=== PATIENT | female | born 1975 | race Caucasian/White ===

== ENCOUNTER 2016-12-31 18:38 | Emergency (ER) | payer MEDICAID ==
[~2016-12-31] VITALS: Ht 157.5 cm; Wt 84.5 kg
[~2016-12-31 18:38] MED LIST: IBUP-1542 PO; IRON; PARO20TA58 PO; TRAM50TA2 PO
[2016-12-31 18:51] VITALS: Ht 157.5 cm; Wt 84.5 kg
[2016-12-31 20:59] LABS: ADD SCAN DIFF NO
[2016-12-31 21:00] LABS: BASOPHIL # 0.1 10^3/ul (0.0-0.1); BASOPHILS % 0.6 % (0.0-2.0); EOSINOPHILS # 0.1 10^3/ul (0.0-0.5); EOSINOPHILS % 1.5 % (0.0-7.0); HEMATOCRIT 32.3 % (37.0-47.0); LYMPHOCYTES # 2.7 10^3/ul (0.8-2.9); LYMPHOCYTES % 29.3 % (15.0-51.0); MEAN CORPUSCULAR HEMOGLOBIN 25.6 pg (29.0-33.0); MEAN CORPUSCULAR VOLUME 82.8 fl (82.0-101.0); MEAN PLATELET VOLUME 9.3 fl (7.4-10.4); MONOCYTE # 0.6 10^3/ul (0.3-0.9); MONOCYTES % 6.7 % (0.0-11.0); NEUTROPHIL # 5.6 10^3/ul (1.6-7.5); NEUTROPHILS % 61.6 % (39.0-77.0); PLATELET COUNT 422 10^3/UL (140-415); RED CELL DISTRIBUTION WIDTH 19.7 % (11.5-14.5); WHITE BLOOD COUNT 9.1 10^3/ul (4.8-10.8)
[2016-12-31 21:06] LABS: ADD UMIC YES; URINE BILIRUBIN (Dip) NEGATIVE (NEGATIVE); URINE BLOOD (Dip) 3+ (NEGATIVE); URINE COLOR DK. RED (YELLOW); URINE GLUCOSE (Dip) NEGATIVE (NEGATIVE); URINE KETONES (Dip) TRACE (NEGATIVE); URINE LEUKOCYTE ESTERASE (Dip) NEGATIVE (NEGATIVE); URINE NITRITE (Dip) NEGATIVE (NEGATIVE); URINE TOTAL PROTEIN (Dip) 2+ (NEGATIVE); URINE UROBILINOGEN (Dip) 0.2 E.U./dL (0.1-1.0)
--- NOTE | 2016-12-31 21:19 | RADRPT ---
PROCEDURE: US Pelvis. CLINICAL INDICATION: Abnormal vaginal bleeding. Metrorrhagia. TECHNIQUE: The pelvis was evaluated with transabdominal sonography in the axial and sagittal plane s. COMPARISON: No prior study is available for comparison. FINDINGS: The uterus is enlarged measuring 15.3 x 7.7 x 11.1 cm. There are multiple fibroids in the uterus wi th a fundal fibroid measuring 7.1 x 7.5 x 7.1 cm and a lower uterine segment fibroid measuring 6.7 x 6.5 x 7.2 cm. The endometrium is normal measuring 10.6 mm. The ovaries are not visualized. There is no other pelvic mass or free fluid. IMPRESSION: 1. Enlarged fibroid uterus. 2. Normal endometrium. 3. Ovaries not visualized. 4. Otherwise normal pelvic ultrasound. RPTAT: QQ .Tray Pérez MD, MD Date Time Electronically viewed and signed by .Tray Pérez MD, on 12/31/2016 21:19 .R/
[2016-12-31 21:21] LABS: ALBUMIN 3.8 g/dl (3.3-4.9)
[2016-12-31 21:22] LABS: POTASSIUM 3.2 mmol/L (3.5-5.1)
[2016-12-31 21:23] LABS: BACTERIA,URINE MODERATE; MUCUS,URINE FEW; SQUAMOUS EPITHELIAL CELL,UR FEW; URINE RBCS >200 /HPF (0)
[2016-12-31 21:24] LABS: CREATININE 0.64 mg/dl (0.44-1.00); TOTAL PROTEIN 7.6 g/dl (6.1-8.1)
[2016-12-31 21:25] LABS: CALCIUM 8.9 mg/dl (8.4-10.2)
[2016-12-31] MEDS ORDERED: TYL500 PO (21:50)
--- NOTE | 2016-12-31 22:00 | ERD ---
ER Documentation Chief Complaint Date/Time DATE: 12/31/16 TIME: 21:56 Chief Complaint heavy bleeding for 5 days changing pad every 30 mins HPI This is 42 y/o female that presents to the ER with vaginal bleeding for the last 5 days. Patient states that her period started on Tuesday. She changes her pad about every hour. Patient has a past medical history of fibroids. She denies any pelvic pain. She denies any loss of consciousness or dizziness. She however does feel tired denies any urinary frequency or dysuria. She already saw a specialist for this however she currently does not have insurance and wheezing were all new to do her surgery. ROS 12 point review of systems was done, all negative except per HPI. Medications Home Meds Active Scripts Acetaminophen* (Tylenol*) 500 Mg Tab, 1000 MG PO Q8H Y for PAIN AND OR ELEVATED TEMP for 3 Days, TAB Prov:DINESH ARIAS 12/31/16 Ibuprofen* (Motrin*) 600 Mg Tab, 600 MG PO Q6, #14 TAB Prov:BEATRIZ MAY PA-C 09/30/15 Tramadol HCl (Tramadol HCl) 50 Mg Tablet, 50 MG PO Q4 Y for PAIN, #14 TAB Prov:BEATRIZ MAY PA-C 09/30/15 Reported Medications [Iron] No Conflict Check 11/04/12 Paroxetine Hcl* (Paxil*) 20 Mg Tablet, 20 MG PO 11/04/12 Allergies Allergies: Coded Allergies: No Known Allergy (Unverified , 12/31/16) PMhx/Soc History of Surgery: Yes (cholecystectomy, c-sections. ) Anesthesia Reaction: No Hx Neurological Disorder: No Hx Respiratory Disorders: No Hx Cardiac Disorders: No Hx Psychiatric Problems: No Hx Miscellaneous Medical Probl: No Hx Alcohol Use: No Hx Substance Use: No Hx Tobacco Use: No Smoking Status: Never smoker Physical Exam Vitals Vital Signs Date Time Temp Pulse Resp B/P Pulse Ox O2 Delivery O2 Flow Rate FiO2 12/31/16 18:51 98.1 74 18 120/75 100 Physical Exam GENERAL: The patient is well developed and appropriate for usual state of health , in no apparent distress. HEENT: Atraumatic. CHEST: Clear to auscultation bilaterally. There are no rales, wheezes or rhonchi. HEART: Regular rate and rhythm. No murmurs, clicks, rubs or gallops. ABDOMEN: Soft, nontender and nondistended. Good bowel sounds. No rebound or guarding. No gross peritonitis. No gross organomegaly or masses. No Martino sign or McBurney point tenderness. BACK: No midline or flank tenderness. NEURO: Alert and oriented. Result Diagram: 12/31/16204712/31/162047 Results 24 hrs Laboratory Tests Test 12/31/16 20:43 12/31/16 20:48 Urine Color DK. RED Urine Clarity HAZY Urine pH 5.0 Urine Specific [place] >=1.030 Urine Ketones TRACE Urine Nitrite NEGATIVE Urine Bilirubin NEGATIVE Urine Urobilinogen 0.2 E.U./dL Urine Leukocyte Esterase NEGATIVE Urine Microscopic RBC >200/HPF Urine Microscopic WBC 0-2/HPF Urine Squamous Epithelial Cells FEW Urine Bacteria MODERATE Urine Mucus FEW Urine Hemoglobin 3+ Urine Glucose NEGATIVE% Urine Total Protein 2+ White Blood Count 9.110^3/ul Red Blood Count 3.9010^6/ul Hemoglobin 10.0g/dl Hematocrit 32.3% Mean Corpuscular Volume 82.8fl Mean Corpuscular Hemoglobin 25.6pg Mean Corpuscular Hemoglobin Concent 31.0g/dl Red Cell Distribution Width 19.7% Platelet Count 17584^3/UL Mean Platelet Volume 9.3fl Neutrophils % 61.6% Lymphocytes % 29.3% Monocytes % 6.7% Eosinophils % 1.5% Basophils % 0.6% Nucleated Red Blood Cells % 0.0/100WBC Neutrophils # 5.610^3/ul Lymphocytes # 2.710^3/ul Monocytes # 0.610^3/ul Eosinophils # 0.110^3/ul Basophils # 0.110^3/ul Nucleated Red Blood Cells # 0.010^3/ul Sodium Level 139mmol/L Potassium Level 3.2mmol/L Chloride Level 103mmol/L Carbon Dioxide Level 27mmol/L Anion Gap 12 Blood Urea Nitrogen 9mg/dl Creatinine 0.64mg/dl Glucose Level 110mg/dl Calcium Level 8.9mg/dl Total Bilirubin 0.0mg/dl Direct Bilirubin 0.00mg/dl Indirect Bilirubin 0.0mg/dl Aspartate Amino Transf (AST/SGOT) 24IU/L Alanine Aminotransferase (ALT/SGPT) 30IU/L Alkaline Phosphatase 99IU/L Total Protein 7.6g/dl Albumin 3.8g/dl Globulin 3.80g/dl Albumin/Globulin Ratio 1.00 Procedures/MDM This is a 42-year-old female presents to the ER with vaginal bleeding. Patient does have a past medical history of fibroids and she does have fibroids on ultrasound. At this time patient is hemodynamically stable there is no evidence of serious anemia. Patient's vital signs are stable with no evidence of hypotension. Patient afebrile and well-appearing. She does not have any pain at this time. Patient be sent home with Tylenol for any potential pain that she may develop. She urgently needs to follow up with [facility] to get fibroids removed. Needs to follow-up with her primary care doctor within 1-2 days or return to ER sooner symptoms worsen. My medical decision making was shared with the patient she understands and agrees with plan. Departure Diagnosis: Primary Impression: Fibroids Condition: Stable Patient Instructions: What Are Fibroids? Additional Instructions: Call your primary care doctor TOMORROW for an appointment during the next 1-2 days.See the doctor sooner or return here if your condition worsens before your appointment time. DINESH ARIAS Dec 31, 2016 22:00
[2016-12-31 22:01] VITALS: BP 120/79; PULSE 81; RESP 18; TEMP 98.1
== END 2016-12-31 22:01 | disposition home or self-care (01) ==
LOC: FTE 18:38
DX: D25.9 Leiomyoma of uterus, unspecified (principal)
CPT/HCPCS: 76856; 80053; 81001; 85025; Z7502; 81003

== ENCOUNTER 2017-05-04 12:00 | Emergency (ER) | payer MEDICAID ==
[~2017-05-04] VITALS: Ht 162.6 cm; Wt 85.0 kg
[~2017-05-04 12:00] MED LIST changes: +TYL500 PO
[2017-05-04 12:16] VITALS: Ht 162.6 cm; Wt 85.0 kg
--- NOTE | 2017-05-04 13:42 | RADRPT ---
PROCEDURE: XR Ribs. CLINICAL INDICATION: Rib trauma/injury TECHNIQUE: 6 views of the right ribs were obtained. COMPARISON: 09/30/2015 FINDINGS: No rib fracture or other focal lesion is identified. The underlying lungs are unremarkable, without pleural effusion or pneumothorax seen. Right upper abdominal/cholecystectomy clips are noted. IMPRESSION: Unremarkable right rib series. RPTAT: VV .Reid Early MD, Date Time Electronically viewed and signed by .Reid Early MD, on 05/04/2017 13:42 .O/
[2017-05-04] MEDS ORDERED: IBUP800T25 PO (13:49)
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
== END 2017-05-04 13:56 | disposition home or self-care (01) ==
LOC: FTE 12:00
DX: S20.211A Contusion of right front wall of thorax, initial encounter (principal); W50.0XXA Accidental hit or strike by another person, initial encounter; Y92.9 Unspecified place or not applicable
CPT/HCPCS: 71100; Z7502

== ENCOUNTER 2019-03-02 10:26 | Emergency (ER) | payer MEDICAID, OTHER ==
[~2019-03-02] VITALS: Ht 165.1 cm; Wt 99.7 kg
[~2019-03-02 10:26] MED LIST changes: +IBUP800T48 PO; +PARO-2 PO; -PARO20TA58 PO
[2019-03-02 10:31] VITALS: BP 125/74; PULSE 88; RESP 18; Ht 165.1 cm; Wt 99.7 kg
[2019-03-02] MEDS ORDERED: IBUP-1542 PO (12:42)
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
== END 2019-03-02 14:13 | disposition home or self-care (01) ==
LOC: FTE 10:26
DX: S99.912A Unspecified injury of left ankle, initial encounter (principal); W18.39XA Other fall on same level, initial encounter; Y92.9 Unspecified place or not applicable
CPT/HCPCS: 73610